=== PATIENT | female | born 1970 | race African-American/Black ===

== ENCOUNTER 2019-05-04 18:52 | Emergency (ER) | payer MEDICARE, MEDICAID ==
[~2019-05-04] VITALS: Ht 172.7 cm; Wt 98.0 kg
[2019-05-04 18:54] VITALS: BP 124/78
== END 2019-05-05 01:03 | disposition left against medical advice (07) ==
LOC: ER 18:52
DX: Z53.21 Procedure and treatment not carried out due to patient leaving prior to being seen by health care provider (principal); I10 Essential (primary) hypertension